=== PATIENT | female | born 1985 | race Caucasian/White ===

== ENCOUNTER → 2017-02-20 | Outpatient (CLI) | payer OTHER | LOC: CIMAGING 16:38 | PROVIDERS: ATTEND Nurse Practitioner | DX: M17.0 Bilateral primary osteoarthritis of knee (principal) | CPT/HCPCS: 73562-PO ==

== ENCOUNTER → 2017-06-18 | Outpatient (CLI) | payer OTHER | LOC: FIMAGING 10:08 | PROVIDERS: ATTEND Physician Assistant | DX: M24.10 Other articular cartilage disorders, unspecified site (principal); M76.31 Iliotibial band syndrome, right leg; M25.461 Effusion, right knee ==